=== PATIENT | male | born 1985 | race Caucasian/White ===

== ENCOUNTER 2017-12-02 22:41 | Emergency (ER) | payer OTHER ==
--- NOTE | 2017-12-02 22:55 | ED ---
General Adult HPI - General Chief complaint: Psychiatric Symptoms Stated complaint: Mental Health Time Seen by Provider: 12/02/17 22:47 Source: patient, police, EMS, RN notes reviewed, old records reviewed Mode of arrival: EMS Limitations: no limitations - History of Present Illness Initial comments: This is a 32-year-old male the ER for evaluation. Patient presents ER for evaluation of neck pain, suicide attempt. Patient has history of psychiatric illness. Patient denies drugs or alcohol today. Patient did cut his neck and suicide attempt, superficial laceration with no bleeding - Related Data Home Medications Medication Instructions Recorded Confirmed Acetaminophen [Tylenol Extra 1,000 mg PO BID PRN 12/02/17 12/02/17 Strength] Ibuprofen [Motrin Ib] 600 mg PO TID PRN 12/02/17 12/02/17 Allergies Allergy/AdvReac Type Severity Reaction Status Date / Time No Known Allergies Allergy Verified 12/02/17 23:16 Review of Systems ROS Statement: Those systems with pertinent positive or pertinent negative responses have been documented in the HPI. ROS Other: All systems not noted in ROS Statement are negative. Past Medical History Additional Past Medical History / Comment(s): lyme's disease, Rheumatoid arthritis Past Surgical History: No Surgical Hx Reported Past Psychological History: Anxiety, Depression, PTSD Smoking Status: Current every day smoker Past Alcohol Use History: None Reported Past Drug Use History: Marijuana General Exam Limitations: no limitations General appearance: alert, in no apparent distress Head exam: Present: atraumatic, normocephalic, normal inspection Eye exam: Present: normal appearance, PERRL, EOMI. Absent: scleral icterus, conjunctival injection, periorbital swelling ENT exam: Present: normal exam, mucous membranes moist Neck exam: Present: normal inspection. Absent: tenderness, meningismus, lymphadenopathy Respiratory exam: Present: normal lung sounds bilaterally. Absent: respiratory distress, wheezes, rales, rhonchi, stridor Cardiovascular Exam: Present: normal rhythm, tachycardia, normal heart sounds. Absent: systolic murmur, diastolic murmur, rubs, gallop, clicks GI/Abdominal exam: Present: soft, normal bowel sounds. Absent: distended, tenderness, guarding, rebound, rigid Extremities exam: Present: normal inspection, full ROM, normal capillary refill. Absent: tenderness, pedal edema, joint swelling, calf tenderness Back exam: Present: normal inspection Neurological exam: Present: alert, oriented X3, CN II-XII intact Psychiatric exam: Present: normal affect, normal mood Skin exam: Present: warm, dry, intact, normal color. Absent: rash Course Vital Signs 12/02/17 22:45 Temperature 98.9 F Pulse Rate 122 H Respiratory 18 Rate Blood Pressure 167/90 O2 Sat by Pulse 100 Oximetry - Reevaluation(s) Reevaluation #1: 12/02/17 22:55 Medical clear for psychiatric evaluation Medical Decision Making - Medical Decision Making 32 male seen evaluated with psychiatry, patient made okay for discharge home, does have safe place to go Disposition Clinical Impression: Acute anxiety, Depression Disposition: HOME SELF-CARE Condition: Good Instructions: Depression (ED) Referrals: None,Stated [Primary Care Provider] - 1-2 days
[2017-12-03 01:39] VITALS: BP 129/70; PULSE 90; RESP 20; TEMP 100.4
== END 2017-12-03 01:37 | disposition home or self-care (01) ==
LOC: EC 22:41
DX: F32.9 Major depressive disorder, single episode, unspecified (principal); F41.9 Anxiety disorder, unspecified; R00.0 Tachycardia, unspecified; F17.200 Nicotine dependence, unspecified, uncomplicated; X78.9XXA Intentional self-harm by unspecified sharp object, initial encounter
CPT/HCPCS: 82075; 99284